=== PATIENT | female | born 1995 | race Two or more races ===

== ENCOUNTER 2022-10-21 11:18 | Outpatient (REF) | payer OTHER, SELFPAY ==
[2022-10-26 09:07] LABS: Age Gdln ACOG Testing Note (.); IGP, rfx Aptima HPV ASCU Note (.)
== END 2022-10-21 11:19 | disposition home or self-care (01) ==
LOC: LAB 11:18
PROVIDERS: Visit Provider Physician Assistant
DX: Z12.4 Encounter for screening for malignant neoplasm of cervix (principal)
CPT/HCPCS: G0145

== ENCOUNTER 2023-12-28 18:12 | Outpatient (REF) | payer OTHER, SELFPAY | END 2023-12-28 18:13 | disposition home or self-care (01) | LOC: LAB 18:12 | PROVIDERS: Visit Provider Physician Assistant | DX: Z01.419 Encounter for gynecological examination (general) (routine) without abnormal findings (principal) | CPT/HCPCS: 88175 ==

== ENCOUNTER 2025-01-01 20:04 | Outpatient (REF) | payer OTHER, SELFPAY ==
--- OUTSIDE RECORDS SUMMARY | 2019-12-26 09:01 | XMS_ITS | Continuity of Care Document ---
Author Organization [facility] Address [address] [place] [address] [place] [address] Phone Care Team Providers Care Vinyl Installer Name Role Phone Evelio Roque MD Unavailable Unavailabl e Allergies, Adverse Reactions, Alerts Substance Reaction Status Criticality No Known Allergies Active No Inform ation Medications Medication Instructions Dosage Effective Dates (start - stop) Status Comments Zoloft 50 mg tablet take 1 tablet by ora l route every day 50 MG - Active Problems Condition Type Effective Dates (start - stop) Clini conrad Status Comments No Known Problems Procedures Procedure Date OFFICE/OUTPATIENT VISIT, [facility] Advance Directives Directive Yes / No Effective Date File Name No Information Encounters Encounter Description Practice Location Reason(s) For Visit Diagnoses Date Provider Providers Copied on Encounter [facility], [address] [place] [address] [address], [place], [place], [id number], [place] tel:[phone] Clearance Coordinator Of [place] No Information Jude Fraser. [address], [address], [place], [place], [id number], [place]. tel:[phone] OFFICE/OUTPAT IENT VISIT, [facility], [address], [place], [place], [id number], [place] tel:[phone] Clearance Coordinator Of [facility] [place] Mass on Chest Wall (chief complaint) EIC (epidermal inclusion cyst) Jude Fraser. [address], [address], [place], [place], [id number], [place]. tel:[phone] Referring Provider: Evelio Roque MD, [address], [place], [address] . tel:[phone] [facility], [address], [place], [id number], [place] tel:[phone] Clearance Coordinator Of [place] No Information Jude Fraser. [address], [address], [place], [id number], [place]. tel:[phone] Family History Family Member Type Diagnosis Age At Onset No Information Payers Payer name Insurance type Covered constitution [facility] [id number] Social History Type Description Quantity Date Captured Comments Sex Female Smoking Status No Information Chief Complaint And Reason For Visit No Information Reason For Referral Reason For Referral No Information History Of Present Illness Encounter Date Complaint History Of Prese nt Illness Mass on Chest Wall pt presents t [facility] for eval of mass on chest wall, pt relates she has had for several years, pt relates it has been increasing in size, it is sometimes painful, with shooting pains down the breast, pt relates no imaging has been done and no drainage. no other c/o at this time Mass on Chest Wall (comments) Pancho murray has had no imaging. Functional Status Date Functional Assessmen t No Information Instructions Date Instruction Additional Infor mation No Information Assessments Type Assessment Date No Information Patient Care Teams Name Effective Dates (start - stop) Status Members No Information
--- OUTSIDE RECORDS SUMMARY | 2025-01-01 10:00 | XMS_ITS | Encounter Summary ---
Author Organization [facility] Address [address] [place] [address] Care Team Providers Care Oncology Rep Specialist Name Role Phone Unavailable Primary Care Provider Unavailabl e Reason for Visit * ReasonCommentsGynecologic Exam Encounter Details DateTypeDepartmentCare Team (Latest Contact Info)Qebodhbiqhu17/03/2025 10:00 AM ESTOffice Visit [facility] [address] [place] [phone] Chuy Mccoy DO [address] [place], [facility]11 Well woman exam with routine gynecological exam Social History Tobacco UseTypesPacks/DayYears UsedDateSmoking Tobacco: Some DaysCigarettes Alcohol UseStandard Drinks/WeekCommentsNever0 (1 standard drink = 0.6 oz pure alcohol)Caffeine intake: 3-4 cups per dayCommentsUnknownSex and Gender InformationValueDate RecordedSex Assigned at BirthNot on fileLegal SexFemale 05/13/2022 8:27 PM EDTGender IdentityNot on fileSexual OrientationNot on file documented as of this encounter Last Filed Vital Signs Vital SignReadingTime TakenCommentsBlood Cvvgkvdh486/6801/01/2025 10:12 AM EST Pulse--Temperature--Respiratory Rate--Oxygen Saturation--Inhaled Oxygen Concentration--Dsusmh66.9 kg (207 lb)01/01/2025 10:12 AM NBLMpxnae844.9 cm (4' 11 )01/01/2025 10:12 AM ESTBody Mass Index41.8101/01/2025 10:12 AM ESTdocumented in this encounter Progress Notes * Kamryn Bronson LPN - 01/01/2025 10:00 AM EST Reason for Appointment: Patient ID: Tereso Corbett is a 29 y.o. female who presents for Gynecologic Exam Patient presents today for Annual Exam. MEDICATIONS Current Outpatient Medications Medication Instructions Levonorgestrel 20 MCG/DAY intrauterine device 1 each, Intrauterine sertraline (ZOLOFT) 25 mg, Every 24 hours ALLERGIES No Known Allergies PROBLEMS Active Ambulatory Problems Diagnosis Date Noted No Active Ambulatory Problems Resolved Ambulatory Problems Diagnosis Date Noted No Resolved Ambulatory Problems No Additional Past Medical History HISTORY PAST MEDICAL HISTORY SOCIAL HISTORY No past medical history on file. Social History Tobacco Use Smoking status: Some Days Current packs/day: 0.25 Types: Cigarettes Smokeless tobacco: Not on file Substance Use Topics Alcohol use: Never Comment: Caffeine intake: 3-4 cups per day Drug use: Never FAMILY HISTORY No family history on file. SURGICAL HISTORY Past Surgical History: Procedure Laterality Date SECTION, LOW TRANSVERSE 2020 INNER EAR SURGERY tubes in ears REVIEW OF SYSTEMS Review of Systems: Review of Systems Constitutional: Negative. HENT: Negative. Eyes: Negative. Respiratory: Negative. Cardiovascular: Negative. Gastrointestinal: Negative. Genitourinary: Negative. Musculoskeletal: Negative. Skin: Negative. Neurological: Negative. All other systems reviewed and are negative. Hematological: Negative. Endocrine: Negative. Allergic/Immunologic: Negative. OBJECTIVE Objective: Physical Exam Constitutional: Appearance: Normal appearance. She is well-developed. Genitourinary: Vulva normal. Right Adnexa: not tender and no mass present. Left Adnexa: not tender and no mass present. No cervical discharge. IUD strings visualized. Breasts: Breasts are soft. Right: Normal. Left: Normal. HENT: Head: Normocephalic. Nose: Nose normal. Mouth/Throat: Mouth: Mucous membranes are moist. Cardiovascular: Rate and Rhythm: Normal rate and regular rhythm. Pulmonary: Effort: Pulmonary effort is normal. Breath sounds: Normal breath sounds. Abdominal: General: Bowel sounds are normal. There is no distension. Palpations: Abdomen is soft. Tenderness: There is no abdominal tenderness. There is no guarding or rebound. Musculoskeletal: General: No swelling. Normal range of motion. Cervical back: Normal range of motion. Right lower leg: No edema. Left lower leg: No edema. Neurological: General: No focal deficit present. Mental Status: She is alert and oriented to person, place, and time. Skin: General: Skin is warm and dry. Psychiatric: Mood and Affect: Mood normal. Behavior: Behavior normal. Vitals and nursing note reviewed. Exam conducted with a technical support consultant present. Vitals: Estimated body mass index is 41.81 kg/m?? as calculated from the following: Height as of this encounter: 4' 11 . Weight as of this encounter: 207 lb. BP: 110/68 No LMP recorded. Assessment/Plan ICD-10-CM 1. Well woman exam with routine gynecological exam Z01.419 Pap Smear Annual Exam: Patient presents today for an annual exam. Patient states she is doing well and has no complaints. Pap was obtained without difficulty. IUD Removal: Patient presents today for removal of IUD. Written consent was obtained and patient was placed in dorsal lithotomy position with feet in stirrups. A sterile speculum was inserted into the vagina and the cervix was visualized. The IUD strings were grasped gently with forceps and the IUD was removed in its entirety without difficulty. The IUD was shown to the patient then properly discarded. Follow Up: Patient is to return to the office for annual exam unless needed otherwise Documented by Kamryn Bronson LPN on behalf of: Chuy Mccoy DO documented in this encounter Miscellaneous Notes * Addendum Note - MADDY West - 01/01/2025 10:00 AM ESTAddended by: JOVANNI MCCOY on: 01/01/2025 11:30 AM Modules accepted: Level of Service documented in this encounter Plan of Treatment DateTypeDepartmentCare Team (Latest Contact Info)Tvbiwxqdmty27/09/2026 10:00 AM ESTProcedure Visit [facility] [address] [place] [phone] Chuy Mccoy DO [address] [place], [place] [id number] NameTypePriorityAssociated DiagnosesOrder SchedulePap SmearPathology and CytologyRoutine Well woman exam with routine gynecological exam Ordered: 01/01/2025documented as of this encounter Visit Diagnoses Diagnosis Well woman exam with routine gynecological exam Routine gynecological examination documented in this encounter
--- OUTSIDE RECORDS SUMMARY | 2025-01-01 20:06 | XMS_ITS | Patient Health Record ---
Author Organization [facility] Address [address] [place], [place] [address] Care Team Providers Care Health Practice Manager Name Role Phone elizabethDonny Frankantoninacarlito Primary Care Provider Chinyere Albert Unavailable [phone] Allergies No Known Allergies Reason For Referral No Information Medications Medication SIG (Take, Route, Frequency, Duration) Notes Start Date End Date Status predniSONE 50 MG 1 tablet Orally Once a day; Dur ation: 5 day(s) 07/01/2021Not-TakingZoloft 100 MG1 tablet Orally Once a day; Duration: 90 daysor generic oneNot-TakingVistaril 50 MG1 capsule as needed Orally every 8 hrs; Duration: 30 day(s)11/13/2020Not-TakingMirtazapine 15 MG1 tablet at bedtime Orally Once a day; Duration: 30 day(s)04/09/2021Not-Taking Social History Tobacco Use: Social History Observation Description Date Details (start date - stop date) Never Smoker NA - NA Sex Assigned At : Social History Observation Description Sex Assigned At Female Tobacco Use/Smoking Question Answer Notes Tobacco use: nonsmoker Problems Problem Type SNOMED Code ICD Code Onset Dates Problem Status W/U Status Risk Notes Problem Anxiety disorder (798488919) Anxiety diso rder, unspecified (F41.9) ActiveconfirmedProblemObese class II (412893751528667)BMI 35.0-35.9,adult (Z68.35)ActiveconfirmedProblemMigraine variant with headache (disorder) (747302980)Migraine headache (G43.909)Activeconfirmed Comment:Has headaches 15 days a month, now it is 2 a week on 40 mg Inderal and Imitrex as needed 50mg, Will increase Imitrex to 100 mg as needed as 50 mg helped but not completely eliminated the headaches, FU in 1 month Labs next time, ProblemMixed anxiety and depressive disorder (712586628)Anxiety and depression (F41.9)ActiveconfirmedProblemSevere acute respiratory syndrome coronavirus 2 (SARS-CoV-2) not detected (Z20.822)InactiveconfirmedDescription:COVID-19 virus not detectedProblemDepression screening (796162113)Screening for depression (Z13.31)InactiveconfirmedDescription:Depression screenProblemUpper respiratory infection (25066711)URI (upper respiratory infection) (J06.9)Inactiveconfirmed ProblemFollow-up status (768300058)Follow up (Z09)InactiveconfirmedProblem Backache (646133878)Mild back pain (M54.9)Inactiveconfirmed Comment:-Intermittent back pain; overuse vs poor posture -No obvious abnormality on exam -Discussed importance of good posture and importance of stretching and ROM regularly -Can take ibuprofen prn -If symptoms persists of do not improve, RTC, patient and mother verified understanding, ProblemEncounter for screening for severe acute respiratory syndrome coronavirus 2 (SARS-CoV-2) infection (Z11.52)InactiveconfirmedDescription:Encounter for screening for COVID-19ProblemMass of chest wall, right (R22.2)Inactiveconfirmed Comment:Had it for many years, tender to touch on off, SQ mass, no attachment to bone, also not in breat tisse, 1x1 cm, partially mobile, no bleeding no systemic symptoms, Will refer to surgery to evaluate it, ProblemSore throat (061512409)Sore throat (J02.9)InactiveconfirmedProblemAcute pharyngitis (682263654)Acute pharyngitis (J02.9)InactiveconfirmedProblemStatus migrainosus (811413848)Status migrainosus (G43.901)InactiveconfirmedProblemAcute bronchitis (31983466)Bronchitis, acute (J20.9)Inactiveconfirmed Plan Of Treatment No Information Insurance Providers Payer Name Payer Address Payer Phone Subscriber Number Group Number Insured Name Patient Relationship to Insured Coverage Start Date Coverage End Date [facility] [address] [address] [place] [phone] [id number] Tereso Corbett Self - patient is the insured [address] [facility] [address] [place], [place] [id number], MirrWangelf - patient is the [id number] 2021Medicaid [facility] after [facility] [address] [place], [place] [id number], OchoaeaSelf - patient is the insured 2018DMedicaid [facility] after [facility] [address] [place], [place] [id number], MirreaSelf - patient is the [id number] 2021 Medical (General) History Surgical History Surgery Date(Month/Year) Tubes in Ears Section - 1Hospitalization History Reason Date(Month/Year)
--- OUTSIDE RECORDS SUMMARY | 2025-01-01 20:06 | XMS_ITS | Clinical Summary ---
Author Organization [facility] Address [id number] [address] [place] [address] Care Team Providers Care Field Reporter Name Role Phone No Pcp, No Pcp Primary Care Provider Unavailabl e Allergies No known active allergies Medications * This document contains information received from the source organization and may not represent a complete record from that organization. MedicationSigDispense QuantityRefillsLast FilledStart DateEnd DateStatus levonorgestreL (MIRENA) 20 mcg/24 hours (7 yrs) 52 mg IUD 1 each by intrauterine route once.Active Social History Tobacco UseTypesPacks/DayYears UsedDateSmoking Tobacco: NeverSmokeless Tobacco: NeverAlcohol UseStandard Drinks/WeekCommentsNot Currently0 (1 standard drink = 0.6 oz pure alcohol)ChildcareAnswerDate XixlfobmGvhbcxrtuNmlfwll30/10/2019 EmploymentAnswerDate YfmoefzaRwgeqygejuNxknpra89/10/2019Hunger ScreeningAnswer Date RecordedWithin the past 12 months we worried whether our food would run out before we got money to buy more.Never True09/23/2024Within the past 12 months the food we bought just didn't last and we didn't have money to get more.Never True09/23/2024Purpose - LifeAnswerDate RecordedPurpose and direction in life Chbgbxe99/10/2021CommentsNoSex and Gender InformationValueDate Recorded Sex Assigned at BirthNot on fileLegal EgvPwhxmm03/04/2015 12:13 PM EDTGender IdentityNot on fileSexual OrientationNot on file Last Filed Vital Signs Vital SignReadingTime TakenCommentsBlood Vcjacqzq63/5607 5:21 PM EDT Htjhk5567 5:21 PM QVQQatkkndwrao44.9 ??C (98.4 ??F)09/23/2024 2:49 PM EDTRespiratory Rrdo133709/23/2024 5:21 PM EDTOxygen Zwzhfzqlvi03%09/23/2024 5:21 PM EDTInhaled Oxygen Concentration--Qbupxr73.8 kg (198 lb)09/23/2024 2:49 PM EDT Ibofmf952.9 cm (4' 11 )09/23/2024 2:49 PM EDTBody Mass Index39.9909/23/2024 2:49 PM EDT Plan of Treatment Health MaintenanceDue DateLast DoneCommentsDepression Alwfaowmv42/07/2010dult BMI Follow Up Plan09/05/2015DTaP,Tdap and Td Vaccines (7 - Td or Tdap)11/16/2019 11/15/2009, 06/19/2002, 12/24/1998, Additional history existsInfluenza Vaccine 10/30/2024dult BMI Bznrmltum35Tobacco Shmvhkopj06/26/2026 09/23/2024Pap Smear Medical Devices Not on file Insurance * Guarantor: Tereso CorbettAccount TypeRelation to PatientDate of PhoneBilling AddressPersonal/AfdccgEohx74/07/1996 [address] [place] [address] Care Teams Team MemberRelationshipSpecialtyStart DateEnd Date [place], [place] [address] [facility]
--- OUTSIDE RECORDS SUMMARY | 2025-01-01 20:06 | XMS_ITS | Encounter Summary ---
Author Organization [facility] Address [address] [facility] [place] [address] Care Team Providers Care Professor Of Theology Name Role Phone Unavailable Primary Care Provider Unavailabl e Encounter Details DateTypeDepartmentCare Team (Latest Contact Info)Iuvudvbodla51/03/2025amboo flowsheet [facility] [address] [place] [address] [place] [address] Chuy Mccoy DO [address] [place], [facility] Social History Tobacco UseTypesPacks/DayYears UsedDateSmoking Tobacco: Some DaysCigarettes Alcohol UseStandard Drinks/WeekCommentsNever0 (1 standard drink = 0.6 oz pure alcohol)Caffeine intake: 3-4 cups per dayCommentsUnknownSex and Gender InformationValueDate RecordedSex Assigned at BirthNot on fileLegal SexFemale 05/13/2022 8:27 PM EDTGender IdentityNot on fileSexual OrientationNot on file documented as of this encounter Plan of Treatment DateType[facility] unitCare Team (Latest Contact Info)Jwvllyohjme01/09/2026 10:00 AM ESTProcedure Visit [facility] [address] [place] [address] [place] [address] Chuy Mccoy, [address] [place], [facility] documented as of this encounter Visit Diagnoses Not on filedocumented in this encounter
--- OUTSIDE RECORDS SUMMARY | 2025-01-01 20:06 | XMS_ITS | Clinical Summary ---
Author Organization [facility] Address [address] [place] [address] Care Team Providers Care Hazmat Tanker Driver Name Role Phone Unavailable Primary Care Provider Unavailabl e Allergies No known active allergies Medications MedicationSigDispense QuantityRefillsLast FilledStart DateEnd DateStatus Levonorgestrel 20 MCG/DAY intrauterine device 1 each by Intrauterine routeActive sertraline (Zoloft) 100 MG tablet 25 mg 1 (one) time each day at the same timeActive Encounters DateTypeDepartmentCare SsycJciurcdxckh44/03/2025 10:00 AM ESTOffice Visit [facility] [address] [place] [address] [place] [address] Chuy Mccoy DO Well woman exam with routine gynecological exam01/01/2025amboo flowsheet [facility] [address] [place] [address] Chuy Mccoy DO from Last 3 Months Social History Tobacco UseTypesPacks/DayYears UsedDateSmoking Tobacco: Some DaysCigarettes Tobacco Cessation:Ready to Q uit: Yes; Counseling Given: Not Answered Alcohol UseStandard Drinks/WeekCommentsNever0 (1 standard drink = 0.6 oz pure alcohol)Caffeine intake: 3-4 cups per dayCommentsUnknownSex and Gender InformationValueDate RecordedSex Assigned at BirthNot on fileLegal SexFemale 05/13/2022 8:27 PM EDTGender IdentityNot on fileSexual OrientationNot on file Last Filed Vital Signs Vital SignReadingTime TakenCommentsBlood Ywrxcfyy884/6801/01/2025 10:12 AM EST Pulse--Temperature--Respiratory Rate--Oxygen Saturation--Inhaled Oxygen Concentration--Xftgqc56.9 kg (207 lb)01/01/2025 10:12 AM WULExdhie861.9 cm (4' 11 )01/01/2025 10:12 AM ESTBody Mass Index41.8101/01/2025 10:12 AM EST Plan of Treatment DateTypeDepartmentCare Team (Latest Contact Info)Moxemdqgicw73/09/2026 10:00 AM ESTProcedure Visit [facility] [address] [phone] Chuy Mccoy DO [address] [facility] [address] [place] [address] Insurance * Guarantor: Tereso Corbett AAccount TypeRelation to PatientDate of BirthPhone Billing AddressPersonal/NxvmnbCkgf37/07/1996 [address] [place] [address]
--- OUTSIDE RECORDS SUMMARY | 2025-01-01 20:06 | XMS_ITS | CCD ---
Author Organization [facility] CliniSywv Care Team Providers Care Magazine Grinder Loader Name Role Phone DR JORDON MCCOY Admitting Unavailable DR JORDON MCCOY Attending Unavailable REQUEST, NONE LISTED Primary Care Unavaila DR JORDON Umana Consulting Unavailable Unavailable Primary Care Provider UnavailJORDON Banerjee Attending Unavailable GABY MCCOY Attending Unavailable NO PCP, NO PCP Primary Care Unavailable NO PCP, NO PCP Primary Care Unavailable NO PCP, NO PCP Primary Care Unavailable NO PCP, NO PCP Primary Care Unavailable NO PCP, NO PCP Primary Care Unavailable JENNIFER SHANE Attending Unavailable NO PCP, NO PCP Primary Care Unavailable Medications Current Medications MedicationDrug Class(es)DatesSig (Normalized)Sig (Original)levonorgestrel 0.592683 mg/hr intrauterine system (10 sources)Progestin, Progestin-containing Intrauterine DeviceLevonorgestrel 20 MCG/DAY intrauterine device 1 each by Intrauterine route Activesertraline 100 mg oral tablet (2 sources)Serotonin Reuptake Inhibitorsertraline (Zoloft) 100 MG tablet 25 mg 1 (one) time each day at the same time Active Completed/Discontinued Medications MedicationDrug Class(es)DatesSig (Normalized)Sig (Original)SUMAtriptan 100 mg oral tablet (2 sources)Serotonin-1b and Serotonin-1d Receptor AgonistStart: 01-31-2023 End: 66-06-1225DFTCgykdhzx (Imitrex) 100 MG tablet TAKE ONE TABLET BY MOUTH AT ONSET OF MIGRAINE. IF SYMPTOMS PERSIST, A SECOND DOSE MAY BE TAKEN IN 2 HOURS. DO NOT EXCEED 2 DOSES IN A 24 HOUR PERIOD, UNLESS OTHERWISE INSTRUCTED BY YOUR PHYSICIAN 01/31/2023 10/28/2023 Discontinued (Other) Problems Active Problems Problem ClassificationProblemDateDocumented DateEpisodic/ChronicHeadache; including migraine (3 sources)Other migraine, intractable, without status migrainosus; Translations: [Migraine, unspecified, intractable, without status migrainosus] Onset: 59-73-2895JtsqcohBcdnpjlh; including migraine (2 sources)Headache; including migraine; Translations: [Headache, unspecified] Onset: 69-53-3632Myqtbowzcmxf (1 source)Oral SwellingOnset: 25-34-4817Nybcdxdkwfkd (1 source)Swelling around PiercingOnset: 11-28-2023 Past or Other Problems Problem ClassificationProblemDateDocumented DateEpisodic/ChronicAbdominal pain (2 sources)Pain in female pelvis; Translations: [Pelvic and perineal pain] 96-85-1448LkavmmjgAabbmmsb of mouth; excluding dental (1 source)Glossitis; Translations: [Glossitis]Onset: 89-20-9081PdaawvjtEgrzqbxs; including migraine (1 source)HeadacheOnset: 25-80-8423JqmdthsdHalovnnkbxmiw and screening for infectious disease (1 source)Encounter for screening for human papillomavirus (HPV); Translations: [ENC SCREENING HUMAN PAPILLOMAVIRUS]Onset: 37-65-0305XojbkohbQprp wounds of head; neck; and trunk (1 source)Puncture wound without foreign body of oral cavity, initial encounter; Translations: [Puncture wound without foreign body of oral cavity, initial encounter]Onset: 93-91-0719XpmubybyTjeoq screening for suspected conditions (not mental disorders or infectious disease) (4 sources)Encounter for screening for malignant neoplasm of cervix; Translations: [ENC SCREENING MALIG NEOPLASM CERV]Onset: 11-38-0815Lhlccepd Results Test NameValueInterpretationReference RangeFacilityPOCT NURSING URINE MACROSCOPIC UAon 74-08-2241FUWHUKJCT NURNegativeNormalNegativeProKing'S Daughters Medical Center Ohioca [facility] Center San DiegoComment on above:Performed By: #### NUM #### [facility] ([address] [place] [address] VIRBLOOD/HGB NURNegativeNormalNegativeProMedica Naval Medical Center San DiegoComment on above:Performed By: #### NUM #### [facility] ([address] [place] [address] VIRGLUCOSE NURNegativeNoalNegativeGrand Lake Joint Township District Memorial Hospital Comment on above:Performed By: #### NUM #### [facility] ([address] [place] [address] VIRKETONES NURNegativeNocarepartners rehabilitation hospitalNegUniversity Hospitals Conneaut [facility] Center Comment on above:Performed By: #### NUM #### [facility] ([address] [address] VIRLEUKOCYTE ESTERASE NURNegativeNormalNegativeGrand Lake Joint Township District Memorial HospitalComment on above:Performed By: #### NUM #### [facility] ([address] [address] VIRNITRITE NURNegativeSteelvilleNegUniversity Hospitals Conneaut Medical Center Comment on above:Performed By: #### NUM #### [facility] ([address] [address] VIRPH NUR6.5Mihjhq1.0, 6.0, 6.5, 7.0, 7.5, 8.0, 8.5, 5.5 [facility] Memorial HospitalComment on above:Performed By: #### NUM #### [facility] ([address] [address] VIRPROTEIN NURNegativeNormalNegUniversity Hospitals Conneaut Medical Center Comment on above:Performed By: #### NUM #### [facility] ([address] [address] VIRSPECIFIC GRAVITY NUR1.441Lfobxp3.010, 1.015, 1.020, 1.025 [facility] Memorial HospitalComment on above:Performed By: #### NUM #### [facility] ([address] [address] VIRUROBILINOGEN NUR0.2 E.U./dLNoMcCullough-Hyde Memorial Hospital Comment on above:Performed By: #### NUM #### [facility] ([facility]) [address] [place] [address] VIRPOCT , URINE (NUCG)on 65-18-6114Pkua HCG ( test) Ql (U)NegativeNormalNegative, IndeterminateProMedica Naval Medical Center San DiegoComment on above:Performed By: #### NUCG #### [facility] ([facility]) [address] [place] [address]. [place] [address] VIRIGP,APTIMA HPV,AGE GDLNon 82-91-1862VDU GDLN ACOG TESTING Note.NOMS HealthcareComment on above:TESTS RESULT FLAG UNITS REF RANGE LAB Clinician Provided Cytology Information Source.............Cervix;Endocervix No. of containers..01 ThinPrep Vial Age Algo ACOG Colleen... FLAG LEGEND: L-Low Normal,H-High Normal,LL-Alert Low,HH-Alert High <-Panic Low,>-Panic High,A-Abnormal,AA-Critical Abnormal Performed at: 01 =G [facility] [address] Sulema Medrano MD, IGP, RFX APTIMA HPV ASCUNote.NOMS HealthcareComment on above:TESTS RESULT FLAG UNITS REF RANGE LAB DIAGNOSIS: 02 NEGATIVE FOR INTRAEPITHELIAL LESION OR MALIGNANCY. Specimen adequacy: 02 Satisfactory for evaluation. No endocervical component is identified. Performed by: 02 Steffanie Fenton, Wine Pasteurizer ([facility]) . 02 Note: Note 02 The Pap smear is a screening test designed to aid in the detection of premalignant and malignant conditions of the uterine cervix. It is not a diagnostic procedure and should not be used as the sole means of detecting cervical cancer. Both false-positive and false-negative reports do occur. Test Methodology: Note 02 This liquid based ThinPrep(R) pap test was screened with the use of an image guided system. . 02 The HPV DNA reflex criteria were not met with this specimen result therefore, no HPV testing was performed. FLAG LEGEND: L-Low Normal,H-High Normal,LL-Alert Low,HH-Alert High <-Panic Low,>-Panic High,A-Abnormal,AA-Critical Abnormal Performed at: [address] [place] [address] Sulema Medrano MD, Performed at: = - [facility] [address], [place] [id number] Back Hand: Sulema Medrano MD, Phone: [phone] Performed at: [facility] [id number] Back Hand: Sulema Medrano MD, Phone: [phone] BRUSH-SPATULA CERVIX ENDOCERVIX CLINISYNCNOPA HealthcareURETHRITIS/DISCHARGE PLUS VAGINITIS (HTRX)on 10-29-2023 ATOPOBIUM VAGINAE0.000NOMS HealthcareATOPOBIUM VAGINAENot detectedNOMS HealthcareBVAB 2,3 (BACTERIAL VAGINOSIS ASSOCIATED BACTERIA 2, 3); MOBILUNCUS SPP0.000NOMS HealthcareBVAB 2,3 (BACTERIAL VAGINOSIS ASSOCIATED BACTERIA 2, 3); MOBILUNCUS SPPNot detectedNOMS HealthcareCANDIDA ALBICANS, PARAPSILOSIS, TROPICALIS0.000NOMS HealthcareCANDIDA ALBICANS, PARAPSILOSIS, TROPICALISNot detectedNOMS HealthcareCANDIDA GLABRATA0.000NOMS HealthcareCANDIDA GLABRATANot detectedNOMS HealthcareCANDIDA KRUSEI0.000NOMS HealthcareCANDIDA KRUSEINot detectedNOMS HealthcareCHLAMYDIA TRACHOMATIS0.000NOMS HealthcareCHLAMYDIA TRACHOMATISNot detectedNOMS HealthcareGARDNERELLA VAGINALIS0.000[facility] GARDNERELLA VAGINALISNot detectedNOMS HealthcareMEGASPHAERA (TYPES 1, 2)0.000 NOMS HealthcareMEGASPHAERA (TYPES 1, 2)Not detectedNOMS HealthcareMYCOPLASMA GENITALIUM0.000NOMS HealthcareMYCOPLASMA GENITALIUMNot detectedNOMS Healthcare NEISSERIA GONORRHOEAE0.000NOMS HealthcareNEISSERIA GONORRHOEAENot detectedNOMS HealthcareTRICHOMONAS VAGINALIS0.000NOMS HealthcareTRICHOMONAS VAGINALISNot detectedNOMS HealthcareNOMS HealthcareHCG ( test) Ql (U)on 10-28-2023 Interpretation and review of laboratory resultsNormalBEAVER VALLEY [facility] HealthcarePreg Test, UrNegativeNONortheast Missouri Rural Health NetworkNOPA HealthcareUrinalysis macro (dipstick) panel (U)on 52-35-4342Vjnvoaofl, UANegativeNegative - 4(70) +++ mg/dLNOMS HealthcareBlood, UANegativeNegative - 50 Johnson/mcLNOMS HealthcareClarity, UAClearNOMS Healthcare Color, UAYellowNOMS HealthcareGlucose, UANegativeNegative - 2000(110) ++++ mg/dL N[facility]S HealthcareInterpretation and review of laboratory resultsAbnormalNOPA HealthcareKetones, UANegativeNegative - 160(16) ++++ mg/dLNOPA Healthcare Leukocytes, UANegativeNegative - 500+++ Pamela/mcLNOPA HealthcareNitrite, UA NegativeNegative - PositiveNOMS HealthcarepH, UA5.55 - 9NOPA HealthcareProtein, UANegativeNegative - 2000(20) ++++ mg/dLNOPA HealthcareSpec Grav, UA1.0201 - 1.03NOPA HealthcareUrobilinogen, UA1.00.2 - 12 mg/dLNONortheast Missouri Rural Health NetworkNOPA Healthcare Vital Signs Date TimeVital SignValuePerforming IzjcmuyefPtvzjbin02-33-9352 10:12-0500Body .9 cmCorey Darius NN LABS Work Phone: [phone] [place], [place] [address]Uxtoftgyup46-22-4223 10:12-0500Body mass index (BMI) [Ratio]41.81 kg/e5Nefps Darius NN LABS Work Phone: [phone] [place], [place] [address]Ctmcqjzsot04-47-7648 10:12-0500Body ndbbuv42.89 kgCorey Darius DO Work Phone: [phone] [place], [place] [address]Fsarhbsuhy68-65-1625 10:12-0500Diastolic blood mm[Hg]Jordon Darius NN LABS Work Phone: [phone] [place], [place] [address]Uzmpyfxqgp52-34-7409 10:12-0500Systolic blood vskakpei211 mm[Hg]Jordon Darius NN LABS Work Phone: [phone] [place], [place] [address]Dbfyuglqjs07-40-5126 10:55-0400Body mass index (BMI) [Ratio]38.98 kg/m2Gaby CASTAÑEDA Work Phone: [phone] [place], [place] [address]Litqfebhcx09-33-9474 10:55-0400Body wtujcc68.54 kgGaby CASTAÑEDA Work Phone: [phone] [place], [place] [address]Hwivdurrrd90-41-2016 10:55-0400Diastolic blood rphlbvqi40 mm[Hg]Gaby CASTAÑEDA Work Phone: [phone] [place], [place] [address]Mvxsasonwg95-42-2900 10:55-0400Systolic blood mm[Hg]Gaby CASTAÑEDA Work Phone: [phone]08-29-2024 11:39-0400Body mass index (BMI) [Ratio]39.14 kg/i8Riikm Darius DO Work Phone: ROBBIENortheast Missouri Rural Health NetworkDhewgqujxb39-97-7082 11:39-0400Body mlqiin68.91 kgCorey Darius DO Work Phone: ROBBIENortheast Missouri Rural Health NetworkTiggsxvgpd05-82-0195 11:39-0400Diastolic blood jefftjrg14 mm[Hg]Jordon Darius DO Work Phone: ROBBIENortheast Missouri Rural Health NetworkAwreszyfjp31-97-6976 11:39-0400Systolic blood neplirdl909 mm[Hg]Jordon Darius DO Work Phone: NO Healthcare Encounters Encounter DateEncounter TypeCare ProviderFacilityStart: 01-01-2025 End: 34-08-1981Hhjiiy flowsheetCorey Darius DO Work Phone: [facility] [place] OBGYNStart: 01-01-2025 End: 24-52-2672Oeisku flowsheetCorey Darius DO Work Phone: [facility] [place] OBGYNStart: 01-01-2025 End: 21-64-2039Yalpfr outpatient visit 15 minutesCoremichelle Wolffo DO Work Phone: [facility] [place] OBGYNComment on above:Well woman exam with routine gynecological examStart: 01-01-2025 End: 86-88-1903Bnwnvcb encounter procedureCorey Darius DO Work Phone: ROBBIEPA HealthcareStart: 09-23-2024 End: 05-65-7213Aadimbphz department patient visitNO PCP NO PCPProMedica Robert F. Kennedy Medical Centertart: 09-18-2024 End: 25-47-6380Irjtsuxbt department patient visitNO PCP NO PCPProMedica Appanoose HospitalStart: 09-01-2024 End: 75-18-5484Zzlodzdtk department patient visitNO PCP NO PCPProMedica Robert F. Kennedy Medical Centertart: 05-20-2024 End: 38-43-2487Mmpaidjzl department patient visitNO PCP NO PCPProMedica Appanoose HospitalStart: 01-24-2024 End: 63-97-2189Pcsiyjqnh department patient visitNO PCP NO [facility] HospitalStart: 12-28-2023 End: 94-68-5175Qhhogo flowsheetGaby CASTAÑEDA Work Phone: noms BCP OBStart: 12-28-2023 End: 03-77-2795Myffpe flowsheetGaby CASTAÑEDA Work Phone: noMS BCP OBStart: 12-28-2023 End: 35-37-2839Saxkddnfu Result EncounterGaby CASTAÑEDA Work Phone: noMS External Department UnsolicitedStart: 12-28-2023 End: 81-68-1610Pwbiary encounter procedureGaby CASTAÑEDA Work Phone: noMS Healthcare Work Phone: Start: 12-28-2023 End: 36-77-8656Pugumqxs preventive med est patient 18-39 yrsGaby CASTAÑEDA Work Phone: noms [facility] OBComment on above:Well woman exam with routine gynecological examStart: 12-28-2023 End: 46-85-7388kmyoemicevFJH Victoriano AvailableStart: 11-28-2023 End: 76-29-8752Ycvfsclyy department patient visitNO PCP NO [facility] HospitalStart: 10-28-2023 End: 01-89-4272Mquqpv flowsheetCorey Darius DO Work Phone: noMS BCP OBStart: 10-28-2023 End: 17-13-9288Ekbjqc flowsheetCorey Darius DO Work Phone: [facility] BCP OBStart: 10-28-2023 End: 54-57-3020Hgznexmw Result EncounterGaby CASTAÑEDA Work Phone: noMS External Department UnsolicitedStart: 10-28-2023 End: 76-93-7588bccmgbbdpjGEJKO FAZIONot AvailableStart: 10-28-2023 End: 50-95-3253Falfqr outpatient visit 15 minutesCorey Darius DO Work Phone: NOM[facility] BCP OBComment on above:Pelvic pain in female Start: 03-20-2020 End: 73-70-1693dcotcddqnaKO JORDON FAZIOFacility:H1 Procedures DateProcedureProcedure DetailPerforming ClinicianStart: 55-81-1538FZQ,APTIMA HPV,AGE GDLNAmy Gayle CASTAÑEDA Work Phone: Start: 90-87-3530GBSSOVXGUB/DISCHARGE PLUS VAGINITIS (HTRX)Gaby CASTAÑEDA Work Phone: Start: 10-28-2023 End: 96-20-7150Bavsz dip stick/tablet rgnt non-auto w/o micrscpAmy Gayle CASTAÑEDA Work Phone: Plan of Treatment DateCare ActivityDetailAuthorStart: 01-07-2026 End: 98-01-4223Wtcmahs encounter fsnkappvi81/09/2026 10:00 AM EST Procedure Visit [facility] [address] [id number] Jordon Mccoy, DO [address] [place] [address] N[facility] Ifeanyi OBGYNStart: 01-01-2025 End: 16-66-2715Ltfssnm encounter msqhupdiu81/03/2025 10:00 AM EST Office Visit [facility] [address] [place] [phone] Jordon Mccoy, DO [address] [place] [address] [facility] BCP OBStart: 12-28-2023 End: 41-09-3785Uczmexg encounter procedureNOMS BCP OBComment on above:Arrived Start: 10-28-2023 End: 82-95-5775OKMXMNZK(R) ADVANCED VAGINITIS PLUS, TMANOMS Healthcare Work Phone: comment on above:Expected: 10/28/2023 (Approximate), Expires: 10/27/2024Ordered: 10/28/2023Start: 10-28-2023 End: 51-80-5948ZK for pregnancyUS PELVIS-TRANSVAG IF INDICATED Imaging Routine Pelvic pain in female Expected: 10/28/2023 (Approximate), Expires: 10/27/2024 [facility] HealthcareComment on above:Expected: 10/28/2023 (Approximate), Expires: 10/27/2024HLAMYDIA TRACHOMATIS (GENITO/STI)CHLAMYDIA TRACHOMATIS (GENITO/STI) Lab Routine Pelvic pain in female Ordered: 10/28/2023[facility] HealthcareComment on above:Ordered: 10/28/2023HLAMYDIA TRACHOMATIS (GENITO/STI)CHLAMYDIA TRACHOMATIS (GENITO/STI) Lab Routine Pelvic pain in female Ordered: 10/28/2023[facility] HealthcareComment on above:Ordered: 10/28/2023ytology Cervical or vaginal smear or scraping studyPap Smear Pathology and Cytology Routine Well woman exam with routine gynecological exam Ordered: 12/28/2023[facility] Healthcare Work Phone: comment on above:Ordered: 12/28/2023ytology Cervical or vaginal smear or scraping studyPap Smear Pathology and Cytology Routine Well woman exam with routine gynecological exam Ordered: 01/01/2025[facility] Healthcare Work Phone: comment on above:Ordered: 01/01/2025Neisseria gonorrhoeae DNA [Presence] in Unspecified specimen by CHIARA with probe detection Neisseria gonorrhea DNA probe, direct Lab Routine Pelvic pain in female Ordered: 10/28/2023[facility] HealthcareComment on above:Ordered: 10/28/2023Neisseria gonorrhoeae DNA [Presence] in Unspecified specimen by CHIARA with probe detection Neisseria gonorrhea DNA probe, direct Lab Routine Pelvic pain in female Ordered: 10/28/2023[facility] HealthcareComment on above:Ordered: 10/28/2023 Payers DatePayer CategoryPayerPolicy ID2019MedicaidM[place]INA MEDICAID [facility] [id number] 2018-Present [address] [address] [place], [place] [id number] 2019Medicaid (Managed Care)[id number] [id number] 2.16840.1.299845.3.57[id number] 2.16840.1.616761.3.57[id number] 2.16840.1.613040.3.57[id number] 2.0.1.901807.3.57[id number] 2.16840.1.957374.3.57[id number] 2.16840.1.433209.3.57[id number] 2.16840.1.811136.3.57[id number] 2.840.1.562088.3.57[id number] Social History DateTypeDetailFacilityStart: 32-41-6491Cpxpeav smoking status NHISOccasional tobacco smokerNOMS HealthcareHistory of tobacco useCigarette SmokerNOMS HealthcareStart: 10-28-2023 End: 17-10-7241Xqfohxfge beverage intakeLifetime non-drinker (finding)NOMS HealthcareStart: 10-28-2023 End: 22-75-0233Nofgrgi of Social functionNOMS HealthcareStart: 10-28-2023 End: 96-81-0334Oecursq use panelColumbia Regional HospitalStart: 03-39-6631Ksosdpq Comment Caffeine intake: 3-4 cups per dayColumbia Regional HospitalStart: 24-52-0236Dia assigned at birthNot on fileColumbia Regional HospitalStart: 47-65-1694KtgRyjposATLZ Healthcare History of Present illness Narrative 01-01-2025 Note Date & LxzkKguaBoadiacp62-98-8484 History of Present illness Narrative* Kamryn Bronson, MANAGER OF DISTRIBUTION - 01/01/2025 10:00 AM EST Reason for [...] appearance. She is well-developed. Genitourinary: Vulva normal. IUD strings visualized. Breasts: Breasts are soft. Right: Normal. Left: Normal. Cardiovascular: Rate and Rhythm: Normal rate and regular rhythm. Pulmonary: Effort: Pulmonary effort is normal. Breath sounds: Normal breath sounds. Abdominal: General: Bowel sounds are normal. There is no distension. Palpations: Abdomen is soft. Tenderness: There is no abdominal tenderness. There is no guarding or rebound. Musculoskeletal: General: No swelling. Normal range of motion. Right lower leg: No edema. Left lower leg: No edema. Neurological: Mental Status: She is alert and oriented to person, place, and time. Skin: General: Skin is warm and dry. Psychiatric: Mood and Affect: Mood normal. Behavior: Behavior normal. Vitals and nursing note reviewed. Exam conducted with a cut lace machine operator present. Vitals: Estimated body mass index is 41.81 kg/m as calculated from the following: Height as [...] by Kamryn Bronson LPN on behalf of: Jordon Mccoy DO documented in this encounterNOPA Healthcare History of Present illness Narrative 12-28-2023 Note Date & NwobBleeQxkxofru54-38-0784 History of Present illness Narrative* MADDY West - 12/28/2023 11:00 AM EDT Reason for Appointment: Patient ID: Tereso Corbett is a 28 y.o. female who presents for Well Women Visit Patient presents today for Annual Exam. MEDICATIONS Current Outpatient Medications Medication Instructions Levonorgestrel 20 MCG/DAY intrauterine device 1 each, Intrauterine ALLERGIES No Known Allergies PROBLEMS Active Ambulatory Problems Diagnosis Date Noted No Active Ambulatory Problems Resolved Ambulatory Problems Diagnosis Date Noted No Resolved Ambulatory Problems No Additional Past Medical History HISTORY PAST MEDICAL HISTORY SOCIAL HISTORY History reviewed. No pertinent past medical history. Social History Tobacco Use Smoking status: Some [...] and no mass present. No cervical discharge. Breasts: Breasts are soft. Right: Normal. Left: [...] nursing note reviewed. Exam conducted with a cut lace machine operator present. Vitals: Estimated body mass index is 38.98 kg/m as calculated from the following: Height as of 10/20/22: 4' 11 . Weight as of this encounter: 193 lb. BP: 116/74 No LMP recorded. ASSESSMENT & PLAN ICD-10-CM 1. Well woman exam with routine gynecological exam Z01.419 Pap Smear Annual Exam: Patient presents today for an annual exam. Patient states she is doing well and has no complaints. Pap was obtained without difficulty. No orders of the defined types were placed in this encounter. Follow Up: Patient is to return in one year for annual unless needed otherwise. Documented by Alethea Holloway LPN on behalf of: MADDY West documented in this encounterNONortheast Missouri Rural Health Network History of Present illness Narrative 10-28-2023 Note Date & XagvUbevGvsdewpb81-98-3788 History of Present illness Narrative* Kamryn Bronson LPN - 10/28/2023 11:10 AM EDT Reason for Appointment: Patient ID: Tereso Corbett is a 28 y.o. female who presents for Pelvic Pain Patient presents today for STD Check. and Consult appointment. MEDICATIONS Current Outpatient Medications Medication Instructions Levonorgestrel 20 MCG/DAY intrauterine device 1 each, Intrauterine ALLERGIES No Known Allergies PROBLEMS Active Ambulatory Problems Diagnosis Date Noted No Active Ambulatory Problems Resolved Ambulatory Problems Diagnosis Date Noted No Resolved Ambulatory Problems No Additional Past Medical History HISTORY PAST MEDICAL HISTORY SOCIAL HISTORY History reviewed. No pertinent past medical history. Social History Tobacco Use Smoking status: Some [...] SYSTEMS Review of Systems: Review of Systems Genitourinary: Positive for pelvic pain. All other systems reviewed and are negative. OBJECTIVE Objective: Physical Exam Constitutional: Appearance: Normal appearance. She is normal weight. HENT: Head: Normocephalic. Cardiovascular: Rate and Rhythm: Normal rate. Pulses: Normal pulses. Pulmonary: Effort: Pulmonary effort is normal. Breath sounds: Normal breath sounds. Abdominal: Palpations: Abdomen is soft. Musculoskeletal: General: Normal range of motion. Neurological: General: No focal deficit present. Mental Status: She is alert and oriented to person, place, and time. Psychiatric: Mood and Affect: Mood normal. Behavior: Behavior normal. Thought Content: Thought content normal. Judgment: Judgment normal. Vitals and nursing note reviewed. Vitals: Estimated body mass index is 39.14 kg/m as calculated from the following: Height as of 10/20/22: 4' 11 . Weight as of this encounter: 193 lb 12.8 oz. BP: 120/80 No LMP recorded. ASSESSMENT & PLAN ICD-10-CM 1. Pelvic pain in female R10.2 POCT urinalysis dipstick manually resulted POCT , urine manually resulted SURESWAB(R) ADVANCED VAGINITIS PLUS, TMA Neisseria gonorrhea DNA probe, direct CHLAMYDIA TRACHOMATIS (GENITO/STI) US PELVIS-TRANSVAG IF INDICATED Patient presents today to be assessed for pelvic pain. Patient voiced that she was previously diagnosed with Trichomonas. Patient voiced that she was treated, but unsure if her partner had been treated and patient feels as though she may have contracted infection back again. Informed patient that this is a possibility and that she is to refrain from intercourse with partner for 14 days after he is treated. Notified patient that once results come back then she can be treated if by chance she is positive for any infection. Patient also given order for pelvic ultrasound and if results of vaginalcultures are negative then patient will be able to schedule appointment to have scan done. Patient to reach out to office with any questions/concerns. Documented by Kamryn Bronson LPN on behalf of: Gaby Mccoy PA-C [facility] Evaluation note Note Date & TypeNoteFacilityEvaluation note* Diagnosis Well woman exam with routine gynecological exam Routine gynecological examination documented in this encounter [facility] Evaluation note Note Date & TypeNoteFacilityEvaluation note* Diagnosis Pelvic pain in female Unspecified symptom associated with female genital organs documented in this encounter [facility] Evaluation note Note Date & TypeNoteFacilityEvaluation note* Diagnosis Well woman exam with routine gynecological exam Routine gynecological examination documented in this encounter [facility] Summary Purpose Family History No Family History Records FoundNo Family History Records FoundNo Family History Records Found Advance Directives No Advanced Directives Records FoundNo Advanced Directives Records FoundNo Advanced Directives Records Found Additional Source Comments INFORMATION SOURCE (unrecogn ized section and content) DATE CREATED AUTHOR 11/10/2021 [facility] DATE CREATED AUTHOR AUTHOR'S ORGANIZ ATION 12/29/2023 [facility] DATE CREATED AUTHOR AUTHOR'S ORGANIZ ATION 09/24/2024 [facility] Reason for Visit (unrecogniz ed section and content) ReasonCommentsWell Women VisitReasonCommentsPelvic PainReasonCommentsGynecologic Exam FOR RECORDS PERTAINING TO PATIENTS WHO ARE OR HAVE BEEN ENROLLED IN A CHEMICAL DEPENDENCY/SUBSTANCEABUSE PROGRAM, SOME INFORMATION MAY BE OMITTED. This clinical summary was aggregated from multiple sources. Caution should be exercised in using it in the provision of clinical care. This summary normalizes information from multiple sources, and as a consequence, information in this document may materially change the coding, format and clinical context of patient data. In addition, data may be omitted in some cases. CLINICAL DECISIONS SHOULD BE BASED ON THE PRIMARY CLINICAL RECORDS. [facility] [employer] provides no warranty or guarantee of the accuracy or completeness of information in this document.
[2025-01-04 11:08] LABS: Age Gdln ACOG Testing Note (.); IGP, rfx Aptima HPV ASCU Note (.)
== END 2025-01-01 20:05 | disposition home or self-care (01) ==
LOC: LAB 20:04
PROVIDERS: Visit Provider Obstetrics & Gynecology
DX: Z01.419 Encounter for gynecological examination (general) (routine) without abnormal findings (principal)
CPT/HCPCS: 88175